=== PATIENT | female | born 1995 | race Caucasian/White ===

== ENCOUNTER 2025-07-17 14:54 | Emergency (ER) | payer MEDICAID, OTHER ==
[~2025-07-17] VITALS: Ht 160 cm; Wt 59.0 kg
[2025-07-17 15:50] VITALS: BP 129/93; TEMP 98
[2025-07-17] MEDS: IBUPROFEN 600 MG TABLET PO ONE (16:05)
[2025-07-17] MEDS: ONDANSETRON 4 MG TAB.RAPDIS SL ONE (16:05)
[2025-07-17] MEDS ORDERED: ONDA4TAB5 PO (16:54)
[2025-07-17] MEDS ORDERED: IBUP-1953 PO (16:54)
[2025-07-17 16:59] VITALS: O2SAT 99
== END 2025-07-17 17:00 | disposition home or self-care (01) ==
LOC: ER 15:02
DX: R51.9 Headache, unspecified (principal); V43.52XA Car driver injured in collision with other type car in traffic accident, initial encounter; Y93.89 Activity, other specified; Y92.410 Unspecified street and highway as the place of occurrence of the external cause; Y99.8 Other external cause status
CPT/HCPCS: 99283; Q0162